=== PATIENT | male | born 1970 | race Two or more races ===

== ENCOUNTER 2020-01-31 17:29 | Outpatient (REF) | payer OTHER, SELFPAY | END 2020-01-31 17:30 | disposition home or self-care (01) | LOC: HO.LAB 17:29 | PROVIDERS: Visit Provider Internal Medicine | DX: Z20.828 Contact with and (suspected) exposure to other viral communicable diseases (principal) | CPT/HCPCS: C9803; U0003 ==

== ENCOUNTER 2020-02-15 13:24 | Outpatient (REF) | payer OTHER, SELFPAY | END 2020-02-15 13:25 | disposition home or self-care (01) | LOC: HO.LAB 13:24 | PROVIDERS: PCP Physician Assistant; Visit Provider Internal Medicine | DX: Z20.828 Contact with and (suspected) exposure to other viral communicable diseases (principal) | CPT/HCPCS: C9803; U0003 ==

== ENCOUNTER 2020-11-06 15:30 | Emergency (ER) | payer OTHER, SELFPAY ==
[2020-11-06 15:49] VITALS: BP 145/78; PULSE 55; RESP 18; TEMP 36.7; O2SAT 99; BMI 35.2
== END 2020-11-06 19:36 | disposition left against medical advice (07) ==
PROVIDERS: Emergency Provider Emergency Medicine; PCP Physician Assistant
DX: T15.92XA Foreign body on external eye, part unspecified, left eye, initial encounter (principal); H57.12 Ocular pain, left eye; X58.XXXA Exposure to other specified factors, initial encounter; Y93.9 Activity, unspecified; Y92.9 Unspecified place or not applicable; Y99.0 Civilian activity done for income or pay
CPT/HCPCS: 99281; 99282

== ENCOUNTER 2020-11-22 17:05 | Outpatient (REF) | payer OTHER, SELFPAY ==
[2020-11-22 17:59] LABS: MANUAL DIFF FLAG NO
[2020-11-22 18:06] LABS: Basophils Percent Auto 0.6 % (0-2); Eosinophils Absolute Auto 0.1 X10*3/uL (0.0-0.4); Eosinophils Percent Auto 1.2 % (0-4); Hematocrit 39.8 % (42-52); Hemoglobin 13.3 g/dl (14.0-18.0); Imm Gran Abs Auto 0.01 X10*3/uL (0.00-0.03); Imm Gran Pct Auto 0.1 % (0.0-0.4); Lymphocytes Absolute Auto 2.1 X10*3/uL (1.2-4.9); Lymphocytes Percent Auto 30.5 % (20-40); Mean Corpuscular HGB Conc 33.4 g/dl (31.0-36.0); Mean Corpuscular Hemoglobin 30.2 pg (27.0-33.0); Mean Corpuscular Volume 90.2 fL (80-98); Mean Platelet Volume 11.9 fL (9.4-12.4); Monocytes Absolute Auto 0.5 X10*3/uL (0.1-1.2); Monocytes Percent Auto 7.4 % (2-11); Neutrophils Absolute Auto 4.2 X10*3/uL (2.0-8.3); Neutrophils Percent Auto 60.2 % (45-73); Platelet Count 192 X10*3/uL (160-400); Red Blood Count 4.41 X10*6/uL (4.60-5.80); Red Cell Distribution Width 11.7 % (11.0-16.0); White Blood Count 6.9 X10*3/uL (4.8-10.8)
[2020-11-22 18:15] LABS: Estimated Average Glucose 88 mg/dL; Hemoglobin A1c % 4.7 %
[2020-11-22 18:41] LABS: Alanine Aminotransferase 114 U/L (0-40); Albumin Level 4.3 g/dL (3.5-5.0); Alkaline Phosphatase 125 U/L (39-117); Anion Gap 11 (12-20); Aspartate Amino Transferase 70 U/L (5-37); Bilirubin Total 0.7 mg/dL (0.0-1.0); Blood Urea Nitrogen 14 mg/dL (9-16); Calcium 9.2 mg/dL (8.4-10.2); Carbon Dioxide 28 mmol/L (22-29); Chloride 104 mmol/L (96-108); Cholesterol 182 mg/dL; Estimated Glomerular Filt Rate > 60; Glucose Random 114 mg/dL (60-115); HDL Cholesterol 55 mg/dL; LDL Cholesterol Calculated 97 mg/dl; Potassium 4.2 mmol/L (3.3-5.1); Sodium 139 mmol/L (135-145); Total Protein 8.3 g/dL (6.5-8.0); Triglycerides 152 mg/dL
[2020-11-22 18:49] LABS: Free T4 (Free Thyroxine) 1.03 ng/dL (0.71-1.85); Thyroid Stimulating Hormone 1.73 uIU/mL (0.32-4.0); Vitamin D 25-OH Total 25.5 ng/mL (>30)
[2020-11-22 19:01] LABS: Folate 17.4 ng/mL (> or = 4.0); Vitamin B12 346 pg/mL (200-900)
== END 2020-11-22 17:06 | disposition home or self-care (01) ==
LOC: HO.LAB 17:05
PROVIDERS: PCP Physician Assistant; Visit Provider Nurse Practitioner Family
DX: R21 Rash and other nonspecific skin eruption (principal); R79.89 Other specified abnormal findings of blood chemistry
CPT/HCPCS: 36415; 80053; 80061; 82306; 82607; 82746; 83036; 84439; 84443; 85025

== ENCOUNTER 2021-01-18 09:45 | Outpatient (REF) | payer OTHER, SELFPAY ==
--- NOTE | ~2021-01-18 | US_ITS ---
EXAMINATION: US ABDOMEN COMPLETE CLINICAL INFORMATION: Abnormal findings of blood chemistry. COMPARISON: None TECHNIQUE: Real-time imaging of the abdominal viscera. FINDINGS: PANCREAS: Pancreas is normal in size and echogenicity. No pancreatic ductal distention or retroperitoneal effusion. ABDOMINAL AORTA: The proximal and distal segments are normal in caliber. Portion of mid abdominal aorta obscured by bowel gas. INFERIOR VENA CAVA: Visualized portions are normal. LIVER: The liver is within upper limits of normal size and is smooth in contour. There is increased hepatic parenchymal echogenicity consistent with hepatic steatosis. There is geographic subcapsular fatty sparing posterior left lobe measuring approximately 3.3 x 2.6 cm. No intrahepatic ductal dilatation. GALLBLADDER: The gallbladder is distended to 3.4 cm in diameter. There is no intraluminal gallstone or sludge and no wall thickening. There are scattered specular echoes in the gallbladder wall with twinkling artifact on color Doppler suggesting cholesterolosis/adenomyomatosis. COMMON BILE DUCT: Normal in caliber measuring 0.5 cm in diameter. RIGHT KIDNEY: Normal. No hydronephrosis. No renal calculi or focal parenchymal lesions. The kidney measures 13.4 cm in maximum dimension. LEFT KIDNEY: Normal. No hydronephrosis. No renal calculi or focal parenchymal lesions. The kidney measures 13.6 cm in maximum dimension. SPLEEN: Normal. The spleen measures 10.9 cm in maximum dimension. FREE FLUID: None. US/US abdomen complete IMPRESSION: 1. Probable cholesterolosis/adenomyomatosis gallbladder. No gallstone or wall thickening or biliary ductal dilatation. 2. Hepatic steatosis with some fatty sparing posterior left lobe.
== END 2021-01-18 09:46 | disposition home or self-care (01) ==
LOC: HO.US 09:45
PROVIDERS: PCP Physician Assistant; Visit Provider Nurse Practitioner Family
DX: R79.89 Other specified abnormal findings of blood chemistry (principal)
CPT/HCPCS: 76700

== ENCOUNTER 2021-02-22 13:14 | Outpatient (REF) | payer OTHER, SELFPAY ==
[2021-02-22 13:55] LABS: MANUAL DIFF FLAG NO
[2021-02-22 14:49] LABS: Basophils Percent Auto 0.3 % (0-2); Eosinophils Absolute Auto 0.1 X10*3/uL (0.0-0.4); Eosinophils Percent Auto 0.9 % (0-4); Hematocrit 40.5 % (42.0-52.0); Hemoglobin 13.3 g/dl (14.0-18.0); Imm Gran Abs Auto 0.01 X10*3/uL (0.00-0.03); Imm Gran Pct Auto 0.2 % (0.0-0.4); Lymphocytes Absolute Auto 2.1 X10*3/uL (1.2-4.9); Lymphocytes Percent Auto 32.4 % (20-40); Mean Corpuscular HGB Conc 32.8 g/dl (31.0-36.0); Mean Corpuscular Hemoglobin 29.6 pg (27.0-33.0); Mean Corpuscular Volume 90.2 fL (80.0-98.0); Mean Platelet Volume 11.9 fL (9.4-12.4); Monocytes Absolute Auto 0.5 X10*3/uL (0.1-1.2); Monocytes Percent Auto 8.5 % (2-11); Neutrophils Absolute Auto 3.7 x10*3/uL (2.0-8.3); Neutrophils Percent Auto 57.7 % (45-73); Platelet Count 178 X10*3/uL (160-400); Red Blood Count 4.49 X10*6/uL (4.60-5.80); Red Cell Distribution Width 11.8 % (11.0-16.0); White Blood Count 6.4 X10*3/uL (4.8-10.8)
[2021-02-22 14:58] LABS: Prothrombin Time 10.8 SEC (9.9-13.0)
[2021-02-22 15:16] LABS: Alanine Aminotransferase 108 U/L (0-40); Albumin Level 4.2 g/dL (3.5-5.0); Alkaline Phosphatase 110 U/L (39-117); Aspartate Amino Transferase 66 U/L (5-37); Bilirubin Direct 0.3 mg/dL (0.0-0.5); Bilirubin Total 0.6 mg/dL (0.0-1.0); Iron 123 mcg/dL (45-160); Percent Iron Saturation 35 % (15-50); Total Iron Binding Capacity 353 mcg/dL (228-428); Total Protein 8.3 g/dL (6.5-8.0); Unsaturated Iron Binding 230 ug/dL
[2021-02-22 15:32] LABS: Vitamin D 25-OH Total 16.5 ng/mL (>30)
[2021-02-22 15:34] LABS: Ferritin 394 ng/mL (20-250)
[2021-02-23 07:50] LABS: HBS Num1 1.63 mIU/mL (0-7.99); HBsAGNum1 0.27 S/CO (0.00-0.99); Hepatitis A Antibody IgM 0.13 Index (0-0.79); Hepatitis B Core Antibody Nonreactive (Nonreactive); Hepatitis B Surface Antigen Negative (Negative); ~HepC Num1 18.34 S/CO (0.00-0.79); ~Hepatitis A Antibody IgM Nonreactive (Nonreactive); ~Hepatitis B Surface Antibody NONREACTIVE (Nonreactive); ~Hepatitis C Antibody Reactive (Nonreactive)
[2021-02-23 08:11] LABS: Hepatitis A Antibody IgM 0.16 Index (0-0.79); ~Hepatitis A Antibody IgM Nonreactive (Nonreactive)
[2021-02-23 08:44] LABS: Hepatitis A Antibody IgG Nonreactive (Nonreactive); ~Hepatitis A Antibody IgG 0.49 S/CO (0.00-0.99)
[2021-02-25 07:17] LABS: Anti Nuclear Antibody Screen NEGATIVE (NEGATIVE)
[2021-02-27 11:46] LABS: Smooth Muscle Antibody <20 U (<20)
[2021-02-27 16:42] LABS: Mitochondrial Antibodies NEGATIVE (NEGATIVE)
== END 2021-02-22 13:15 | disposition home or self-care (01) ==
LOC: HO.LAB 13:14
PROVIDERS: Nurse Practitioner Family; PCP Physician Assistant; Visit Provider Internal Medicine Gastroenterology
DX: K76.0 Fatty (change of) liver, not elsewhere classified (principal); R79.89 Other specified abnormal findings of blood chemistry
CPT/HCPCS: 36415; 80076; 82306; 82728; 83540; 85025; 85610; 86038; 86039; 86255; 86256; 86704; 86706; 86708; 86709; 86803; 87340

== ENCOUNTER 2021-03-02 08:35 | Outpatient (REF) | payer OTHER, SELFPAY ==
[2021-03-02 10:05] LABS: ~HepC Num1 17.56 S/CO (0.00-0.79); ~Hepatitis C Antibody Reactive (Nonreactive)
[2021-03-08 15:16] LABS: HCV RNA PCR Qn 5360000 IU/mL (NOT DETECTED); HCV RNA PCR Qn 6.73 Log IU/mL (NOT DETECTED)
[2021-03-16 14:15] LABS: HCV Genotype LiPA 1a
== END 2021-03-02 08:36 | disposition home or self-care (01) ==
LOC: HO.LAB 08:35
PROVIDERS: Visit Provider Nurse Practitioner Family
DX: Z01.84 Encounter for antibody response examination (principal); R76.8 Other specified abnormal immunological findings in serum
CPT/HCPCS: 36415; 86803; 87522; 87902

== ENCOUNTER 2021-04-17 07:19 | Day surgery (SDC) | payer OTHER, SELFPAY ==
--- NOTE | 2021-04-16 08:43 | HO.ANESPROP2 ---
Documented by User: Kamala Horn NP 04/16/21 08:43 HPI - Anesthesia Eval Consult details Narrative: 51yo M for Colonoscopy Methadone daily for h/o IVDA PMFSH Active Problems Active Problems: All Active Problems (Updated 03/15/21 @ 13:39 by Valentina Garcia RN) Skin rash (Acute) BMI 33.0-33.9,adult (Acute) Low vitamin D level (Acute) Elevated LFTs (Acute) Adenomyomatosis of gallbladder (Acute) Hepatitis C antibody positive in blood (Acute) Hepatitis C infection (Acute) Past Medical History Medical History (Updated 03/15/21 @ 13:39 by Valentina Garcia RN) Hx of drug dependence Family History Family History (Updated 11/22/20 @ 16:49 by LISA Stern) Son Mental health disorder Mother Heart attack Father No problems noted. Other Substance use disorder Surgical History Surgical History (Updated 11/22/20 @ 16:01 by MONICA Garner) No history of previous surgery Social History Social History (Updated 11/22/20 @ 16:02 by MONICA Garner) Housing: Apartment Alcohol intake: never Patient Tobacco Use Status: Current everyday Tobacco user Tobacco use type: Cigarette Cigarettes Per Day: 5 Smoked in Last 30 Days: Yes Use of substances other than those prescribed or required for medical reasons: Yes Are you DNR?: No Advance Directives: No Advance Directives Information Provided: Yes service: No Current occupational status: employed Meds Allergies Allergy/AdvReac Type Severity Reaction Status Date / Time No Known Allergies Allergy Verified 04/17/21 07:36 [No Known Allergies*] Home Medications Medication Instructions Recorded Confirmed Last Taken Type methadone 10 mg/mL oral concentrate mg 03/15/21 Unknown History Exam Exam Date and Time: April 16, 2021 0843 Pertinent Lab Results Pertinent Lab Results: Laboratory Tests 11/22/20 02/22/21 17:28 13:51 WBC 6.4 Hgb 13.3 L Hct 40.5 L Plt Count 178 Sodium 139 Potassium 4.2 Chloride 104 Carbon Dioxide 28 BUN 14 Creatinine 0.83 Assessment and Plan Assessment Anesthesia Assessment: Chart Reviewed Documented by User: Rey Valerio 04/17/21 08:19 COUNT INCLUDES THE [facility] Past Medical History Medical History (Updated 03/15/21 @ 13:39 by Valentina Garcia RN) Hx of drug dependence Family History Family History (Updated 11/22/20 @ 16:49 by LISA Stern) Son Mental health disorder Mother Heart attack Father No problems noted. Other Substance use disorder Family history of problems with anesthesia: No Surgical History Surgical History (Updated 11/22/20 @ 16:01 by MONICA Garner) No history of previous surgery History of Problems with Anesthesia: No Social History Social History (Updated 11/22/20 @ 16:02 by MONICA Garner) Housing: Apartment Alcohol intake: never Patient Tobacco Use Status: Current everyday Tobacco user Tobacco use type: Cigarette Cigarettes Per Day: 5 Smoked in Last 30 Days: Yes Use of substances other than those prescribed or required for medical reasons: Yes Are you DNR?: No Advance Directives: No Advance Directives Information Provided: Yes service: No Current occupational status: employed Meds Allergies Allergy/AdvReac Type Severity Reaction Status Date / Time No Known Allergies Allergy Verified 04/17/21 07:36 [No Known Allergies*] Home Medications Medication Instructions Recorded Confirmed Last Taken Type methadone 10 mg/mL oral concentrate mg 03/15/21 Unknown History Exam Airway Mallampati Class: II TM Dist: >3cm Neck ROM: Full Loose/Missing/Broken Teeth: Yes Heart: rrr Lungs: bl breath sounds Assessment and Plan Assessment Anesthesia Assessment: Anesthesia Plan Discussed Final Anesthetic Review Family History of Problems with Anesthesia: No History of Problems with Anesthesia: No NPO: Yes ASA Class: III Final Preanesthetic Review: Meds/Allgs Chart Reviewed and Anes Risks/Benef Reviewed Patient Risk: Intermediate Procedure Risk: Intermediate Anesthetic Plan Anesthetic Plan: MAC: Disposition: Standard PACU
[2021-04-17 08:01] VITALS: BMI 34.9
[2021-04-17 08:03] VITALS: BP 163/91; PULSE 56; RESP 16; TEMP 36.3; O2SAT 97
[2021-04-17] MEDS: Lactated Ringers 1,000 ML 100 ML IVCONT (08:13)
--- NOTE | 2021-04-17 08:15 | MHC.SHP ---
Pre-Procedural Eval Section A Date of Service: 04/17/21 Section B Chief Complaint: screening Details of Present Illness: screening see h&p no changes Relevant Family History (Specify if Yes): No Relevant Social History: None Present Medications: None Medical History: No relevant PMH History of Previous Operations: No relevant previous surgery Allergies: Allergies Allergy/AdvReac Type Severity Reaction Status Date / Time No Known Allergies Allergy Verified 04/17/21 07:36 [No Known Allergies*] Review of Systems Sugical H&P ROS: Negative: Constitution, Cardiovascular, Respiratory, Neurological, Psychiatric, Hem-Onc, Allergic/Immunologic, Gastrointestinal, Genitourinary, Musculoskeletal, Integumentary, Endocrine and Eyes/Ears/Nose/Throat Exam Surgical H&P Exam: Normal: HEENT, Normal: Heart, Normal: Lungs, Normal: Extremities, Normal: Abdomen, Normal: Skin and Normal: Neurological Plan Diagnosis/Plan: Unchanged I have reviewed the history and physical and performed a pertinent physical examination on my patient. No changes have occurred unless specified.
--- NOTE | 2021-04-17 08:50 | P.BOP_ITS ---
Brief Operative Note Date of Service: 04/17/21 Pre-op diagnosis: screening Post-op diagnosis: same Procedure: colonoscopy Surgeon: Elliott Abel Anesthesia: MAC Was an Private Equity Analyst used for this Procedure?: No Estimated blood loss (mL): 0 Pathology: none sent Condition: stable Disposition: PACU
[2021-04-17 08:56] VITALS: BP 102/61; PULSE 53; RESP 15; TEMP 36.6; O2SAT 98
[2021-04-17 09:11] VITALS: BP 132/82; PULSE 54; RESP 16; TEMP 36.6; O2SAT 98
--- NOTE | 2021-04-17 09:32 | OP_ITS ---
SURGEON: Elliott Abel MD INDICATIONS: Colon cancer screening. PREOPERATIVE DIAGNOSIS: POSTOPERATIVE DIAGNOSIS: PROCEDURE PERFORMED: Colonoscopy to the terminal ileum. ESTIMATED BLOOD LOSS: COMPLICATIONS: ANESTHESIA: Medications, monitored anesthesia care. ASSISTANTS: SPECIMENS: DESCRIPTION OF PROCEDURE: History and physical was performed. The risks and benefits of the procedure were explained to the patient. Informed consent was obtained. The patient was placed in the left lateral decubitus position. A digital rectal exam was performed and was found to be normal. The Olympus pediatric video colonoscope was introduced into the rectum and advanced to the cecum without difficulty. The cecum was identified by transillumination, palpation, and identification of ileocecal valve. Examination was performed. The scope was removed. He tolerated the procedure well and was transferred to the recovery room in stable condition. FINDINGS: The terminal ileum was examined and appeared normal. The visualized colonic mucosa was normal. The quality of the prep was good with some liquid stool, which was easily washed and suctioned allowing examination of the remaining mucosa. No polyps were identified. Retroflexed examination did show some small internal hemorrhoids. IMPRESSION: Normal screening colonoscopy. RECOMMENDATION: 1. Follow up as needed. 2. Repeat colonoscopy is recommended in 10 years for average risk individuals. MD MCKENZIE Reyes/HUY / [id number]
--- NOTE | 2021-04-17 09:49 | PC.NURSE ---
SECURITY WAS NOTIFIED AND PATIENT'S KNIFE WAS RETURNED TO PATIENT WITHOUT INCIDENT. PATIENT ESCORTED OUT TO HIS RIDE IN FRONT OF THE HOSPITAL WITHOUT INCIDENT.
== END 2021-04-17 09:52 | disposition home or self-care (01) ==
PROVIDERS: PCP Physician Assistant; Visit Provider Internal Medicine Gastroenterology
PROC: 0DJD8ZZ Inspection of Lower Intestinal Tract, Via Natural or Artificial Opening Endoscopic (ICD-10-PCS; CPT 45378; principal; 2021-04-17 08:20)
DX: Z12.11 Encounter for screening for malignant neoplasm of colon (principal); K64.8 Other hemorrhoids; R79.89 Other specified abnormal findings of blood chemistry; F11.20 Opioid dependence, uncomplicated; F17.210 Nicotine dependence, cigarettes, uncomplicated
CPT/HCPCS: 45378

== ENCOUNTER 2021-05-18 06:40 | Outpatient (REF) | payer OTHER, SELFPAY ==
[2021-05-18 08:16] LABS: Vitamin D 25-OH Total 42.3 ng/mL (>30)
[2021-05-25 09:32] LABS: HCV Genotype PCR 1a
[2021-05-26 16:01] LABS: FIB-ALT 56 U/L (9-46); FIB-Alpha-2-Macroglobulin 379 mg/dL (106-279); FIB-Apolipoprotein A1 165 mg/dL (94-176); FIB-GGT 255 U/L (3-95); FIB-Haptoglobin 279 mg/dL (43-212); FIB-Total Bilirubin 0.4 mg/dL (0.2-1.2); Liver Fibrosis Score 0.53; Liver Fibrosis Stage F2; Nec Inflam Act Grade A1-A2; Nec Inflam Act Score 0.41
== END 2021-05-18 06:41 | disposition home or self-care (01) ==
LOC: HO.LAB 06:40
PROVIDERS: Absent Provider Nurse Practitioner Family; PCP Physician Assistant; Visit Provider Nurse Practitioner Acute Care
DX: B19.20 Unspecified viral hepatitis C without hepatic coma (principal); R79.89 Other specified abnormal findings of blood chemistry
CPT/HCPCS: 36415; 81596; 82306; 87902

== ENCOUNTER → 2021-06-06 14:59 | Outpatient (BNVA) | payer OTHER, SELFPAY | PROVIDERS: Visit Provider Internal Medicine | DX: B19.20 Unspecified viral hepatitis C without hepatic coma (principal) | CPT/HCPCS: 99202 ==

== ENCOUNTER 2021-06-11 06:33 | Outpatient (REF) | payer OTHER, SELFPAY ==
[2021-06-11 08:59] LABS: HIV AB/AG Nonreactive (Nonreactive); HIV Num 1 0.07 S/CO (0.00-0.99)
[2021-06-12 14:52] LABS: HCV RNA PCR Qn 3260000 IU/mL (NOT DETECTED); HCV RNA PCR Qn 6.51 Log IU/mL (NOT DETECTED)
[2021-06-25 19:01] LABS: HCV Genotype LiPA 1a
== END 2021-06-11 06:34 | disposition home or self-care (01) ==
LOC: HO.LAB 06:33
PROVIDERS: Nurse Practitioner Family; PCP Nurse Practitioner Acute Care; Visit Provider Internal Medicine
DX: B19.20 Unspecified viral hepatitis C without hepatic coma (principal)
CPT/HCPCS: 36415; 87389; 87522; 87902

== ENCOUNTER → 2021-07-18 15:40 | Outpatient (BNVA) | payer OTHER, SELFPAY | PROVIDERS: PCP Nurse Practitioner Acute Care; Visit Provider Internal Medicine | DX: B19.20 Unspecified viral hepatitis C without hepatic coma (principal) | CPT/HCPCS: 99212 ==

== ENCOUNTER 2021-10-30 16:37 | Outpatient (REF) | payer OTHER, SELFPAY ==
[2021-11-02 15:11] LABS: HCV RNA PCR Qn <1.18 NOT DETECTED Log IU/mL (NOT DETECTED); HCV RNA PCR Qn <15 NOT DETECTED IU/mL (NOT DETECTED)
== END 2021-10-30 16:38 | disposition home or self-care (01) ==
LOC: HO.LAB 16:37
PROVIDERS: Visit Provider Internal Medicine
DX: R76.8 Other specified abnormal immunological findings in serum (principal); B19.20 Unspecified viral hepatitis C without hepatic coma
CPT/HCPCS: 36415; 87522; 87902

== ENCOUNTER → 2021-11-14 13:37 | Outpatient (BNVA) | payer OTHER, SELFPAY | PROVIDERS: Visit Provider Internal Medicine | DX: B19.20 Unspecified viral hepatitis C without hepatic coma (principal) | CPT/HCPCS: 99212 ==

== ENCOUNTER → 2022-02-11 14:09 | Outpatient (BNVA) | payer OTHER, SELFPAY | PROVIDERS: Visit Provider Physician Assistant Medical | DX: M25.531 Pain in right wrist (principal) | CPT/HCPCS: 73110; 99202 ==

== ENCOUNTER 2022-02-12 11:18 | Outpatient (REF) | payer OTHER, SELFPAY ==
[2022-02-14 14:59] LABS: HCV Log PCR <1.18 NOT DETECTED Log IU/mL (NOT DETECTED); HepC Viral Load <15 NOT DETECTED IU/mL (NOT DETECTED)
== END 2022-02-12 11:19 | disposition home or self-care (01) ==
LOC: HO.LAB 11:18
PROVIDERS: Visit Provider Internal Medicine
DX: B19.20 Unspecified viral hepatitis C without hepatic coma (principal)
CPT/HCPCS: 36415; 87522

== ENCOUNTER → 2022-02-21 15:16 | Outpatient (BNVA) | payer OTHER, SELFPAY | PROVIDERS: Visit Provider Internal Medicine | DX: S63.501A Unspecified sprain of right wrist, initial encounter (principal); X58.XXXA Exposure to other specified factors, initial encounter | CPT/HCPCS: 99213 ==

== ENCOUNTER → 2022-03-08 15:19 | Outpatient (BNVA) | payer OTHER, SELFPAY | PROVIDERS: Visit Provider Internal Medicine | DX: M25.531 Pain in right wrist (principal); M25.532 Pain in left wrist; M25.431 Effusion, right wrist | CPT/HCPCS: 99213 ==

== ENCOUNTER 2022-04-22 08:48 | Outpatient (REF) | payer SELFPAY ==
--- NOTE | ~2022-04-22 | XR_ITS ---
EXAMINATION: XR WRIST, RIGHT CLINICAL INFORMATION: Right wrist pain COMPARISON: 02/11/2022 TECHNIQUE: PA, lateral, and oblique views of the right wrist. FINDINGS: Dorsal soft tissue swelling. No acute fracture or malalignment. There are small round calcifications in the soft tissues volar to the 3rd and 4th MCP joints of uncertain etiology. These were present previously, possibly due to a remote injury. Such soft tissue calcifications can be seen with soft tissue hemangiomas. Clinically correlate and consider further evaluation with MRI if indicated. XR/XR wrist RT min 3V IMPRESSION: 1. Dorsal soft tissue swelling. No acute osseous abnormality. 2. Small round calcifications in the soft tissues volar to the 3rd and 4th MCP joints of uncertain etiology. Consider further evaluation with MRI if clinically indicated.
== END 2022-04-22 08:49 | disposition home or self-care (01) ==
LOC: HO.HOSX 08:48
PROVIDERS: Visit Provider Orthopaedic Surgery
DX: M25.531 Pain in right wrist (principal)
CPT/HCPCS: 73110

== ENCOUNTER → 2022-04-23 13:55 | Outpatient (BNVA) | payer OTHER, SELFPAY | PROVIDERS: Visit Provider Orthopaedic Surgery | DX: R20.0 Anesthesia of skin (principal); R20.2 Paresthesia of skin | CPT/HCPCS: 99202; 99212 ==

== ENCOUNTER 2022-05-02 | Outpatient (REF) | payer OTHER, SELFPAY ==
--- NOTE | ~2022-05-02 | XR_ITS ---
EXAMINATION: BILATERAL KNEE X-RAY CLINICAL INFORMATION: Pain COMPARISON: Previous x-rays most recent 2017 and 2019 TECHNIQUE: 3 views of each knee FINDINGS: Right: There is varus angulation. Bone alignment is otherwise normal. There is severe arthritis at the medial femoral tibial joint. There is mild arthritis at the patellofemoral joint. There is a large joint effusion. Left: Bone alignment is normal. No fracture or dislocation. There is arthritis at the lateral femoral tibial and patellofemoral joints. There is a moderate joint effusion. XR/XR knee standing BI IMPRESSION: Bilateral arthritis and joint effusions.
--- NOTE | ~2022-05-02 | XR_ITS ---
EXAMINATION: BILATERAL KNEE X-RAY CLINICAL INFORMATION: Pain COMPARISON: Previous x-rays most recent 2017 and 2019 TECHNIQUE: 3 views of each knee FINDINGS: Right: There is varus angulation. Bone alignment is otherwise normal. There is severe arthritis at the medial femoral tibial joint. There is mild arthritis at the patellofemoral joint. There is a large joint effusion. Left: Bone alignment is normal. No fracture or dislocation. There is arthritis at the lateral femoral tibial and patellofemoral joints. There is a moderate joint effusion. XR/XR knee RT 2V IMPRESSION: Bilateral arthritis and joint effusions.
--- NOTE | ~2022-05-02 | XR_ITS ---
EXAMINATION: BILATERAL KNEE X-RAY CLINICAL INFORMATION: Pain COMPARISON: Previous x-rays most recent 2017 and 2019 TECHNIQUE: 3 views of each knee FINDINGS: Right: There is varus angulation. Bone alignment is otherwise normal. There is severe arthritis at the medial femoral tibial joint. There is mild arthritis at the patellofemoral joint. There is a large joint effusion. Left: Bone alignment is normal. No fracture or dislocation. There is arthritis at the lateral femoral tibial and patellofemoral joints. There is a moderate joint effusion. XR/XR knee LT 2V IMPRESSION: Bilateral arthritis and joint effusions.
== END 2022-05-02 00:01 | disposition home or self-care (01) ==
LOC: HO.HOSX
PROVIDERS: Visit Provider Physician Assistant
DX: M17.0 Bilateral primary osteoarthritis of knee (principal)
CPT/HCPCS: 20610; 73560; 73565; J1040

== ENCOUNTER 2022-06-05 11:54 | Outpatient (REF) | payer OTHER, SELFPAY ==
--- NOTE | 2022-06-05 10:15 | EMG_ITS ---
Please see scanned EMG / Nerve Conduction Report. MTDD
== END 2022-06-05 11:55 | disposition home or self-care (01) ==
LOC: HO.NEURO 11:54
PROVIDERS: Visit Provider Orthopaedic Surgery
DX: R20.0 Anesthesia of skin (principal); R20.2 Paresthesia of skin
CPT/HCPCS: 95885; 95913

== ENCOUNTER → 2022-06-26 09:20 | Outpatient (BNVA) | payer OTHER, SELFPAY | PROVIDERS: Visit Provider Physician Assistant Medical | DX: S33.9XXA Sprain of unspecified parts of lumbar spine and pelvis, initial encounter (principal); X50.0XXA Overexertion from strenuous movement or load, initial encounter | CPT/HCPCS: 99203 ==

== ENCOUNTER → 2022-07-01 10:02 | Outpatient (BNVA) | payer OTHER, SELFPAY | PROVIDERS: Visit Provider Physician Assistant Medical | DX: S33.9XXA Sprain of unspecified parts of lumbar spine and pelvis, initial encounter (principal); X50.0XXA Overexertion from strenuous movement or load, initial encounter | CPT/HCPCS: 99213 ==

== ENCOUNTER → 2022-07-15 09:26 | Outpatient (BNVA) | payer OTHER, SELFPAY | PROVIDERS: Visit Provider Physician Assistant Medical | DX: S33.9XXD Sprain of unspecified parts of lumbar spine and pelvis, subsequent encounter (principal); X50.0XXD Overexertion from strenuous movement or load, subsequent encounter; M54.17 Radiculopathy, lumbosacral region; M46.1 Sacroiliitis, not elsewhere classified | CPT/HCPCS: 99213 ==

== ENCOUNTER → 2022-07-30 14:52 | Outpatient (BNVA) | payer OTHER, SELFPAY | PROVIDERS: Visit Provider Physician Assistant Medical | DX: S33.9XXD Sprain of unspecified parts of lumbar spine and pelvis, subsequent encounter (principal); X50.0XXD Overexertion from strenuous movement or load, subsequent encounter; M54.17 Radiculopathy, lumbosacral region | CPT/HCPCS: 99213 ==

== ENCOUNTER → 2022-08-01 13:32 | Outpatient (BNVA) | payer OTHER, SELFPAY | PROVIDERS: Visit Provider Physician Assistant | DX: M17.11 Unilateral primary osteoarthritis, right knee (principal); M17.12 Unilateral primary osteoarthritis, left knee | CPT/HCPCS: 20610; 99212; J1040 ==

== ENCOUNTER 2022-08-15 10:00 | Outpatient (RCR) | payer OTHER, SELFPAY ==
[2022-07-04 08:27] VITALS: BP 135/63; PULSE 67
--- NOTE | 2022-07-04 10:49 | MHC.PT.EP ---
[facility] [place] [facility] [address] Mary Brennan [address] [phone] F: [phone] F: [phone] F: [phone] F: [phone] Physical Therapy Plan of Care Date of Evaluation: Date of Surgery: Diagnosis: lumbosacral strain and spasms Assessment: 52 y/o male referred to PT with lumbosacral strain and spasm on 06/25/22 from work connection. 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 He is not sure what he lifted, but he reports having onset of L LBP while at work and reported to his senior software engineering manager. This pain worsened throughout the day and he has been OOW since 06/25/22. His pain is located L lumbar region radiated into medial L grion/adductor region resulting in pain and difficulty with all movement, sitting, standing, walking, stairs, sleeping, and work duties. Denies bowel, bladder changes and saddle anesthesia. He was emotionally labile throughout evaluation d/t pain and also reporting 'upset and embarrassed' and he has never injured himself before.' D/t high pain levels and emotionally lability, evaluation was somewhat limited. He demonstrate R lateral shift (hips to the L), significantly limited lumbar AROM, poor sitting and standing posture (leans to the R), decreased L hip/knee strength, increased pain, and ?altered DTR (pt unable to fully relax so not accurate assessment). S/s consistent with lumbar derangement and recommend PT 3x/week for 2 weeks then 2x/week for another 2 weeks to address impairments, implement HEP, and optimize functional mobility. Frequency and Duration: The patient will be seen 3x/week for 4 weeks Short Term Goals: 2 weeks Initiate HEP Pt will be able to sit in neutral erect posture with pain < 4/10 Pt will be able to perform bed mobility without assistance and pain < 4/10 Will iniitate work simulation in 3 weeks Halfway Goals: 4 weeks I with HEP and self management of sx Pt will demonstrate LE strength to 4/5 to facilitate functional mobility Pt will be able to ambulate > 20 minutes with pain < 3/10 Pt will be able to lift 15# box with proper mechanics and pain < 3/10 Treatment Plan: Modalities to reduce pain, spasms and effusion. Manual therapy to restore motion and function. Therapeutic exercise to improve strength and flexibility. Neuromuscular re-education for posture and balance. Therapeutic activities to return to functional activities of daily living. Electronically signed by: Vandana Rogel PT Please sign and return to therapist. Thank you for your referral.
--- NOTE | 2022-09-18 08:13 | MHC.PT.DC ---
[facility] [place] Office [place] Office [place] Office [address] Mary Brennan [address] [phone] F: [phone] F: [phone] F: [phone] F: [phone] Physical Therapy Discharge Report Diagnosis: lumbosacral strain and spasms Date of Surgery: Date of Evaluation: 07/04/22 Date of Discharge: 09/18/22 Treatments to Date: 13 Cancellations to Date: 0 No Shows to Date: 0 Discharge Status: Discharge Summary: Pt has not been here in over 30 days and per department policy, will d/c chart. Status is unknown. At time of last visit, he was awaiting lumbar MRI imaging. Electronically signed by: Vandana Rogel PT Please sign and return to therapist. Thank you for your referral.
== END 2022-09-18 08:13 | disposition home or self-care (01) ==
LOC: HO.PT 10:00
PROVIDERS: Visit Provider Physician Assistant Medical
DX: S39.012D Strain of muscle, fascia and tendon of lower back, subsequent encounter (principal); M62.830 Muscle spasm of back
CPT/HCPCS: 97014; 97110; 97162; 97530

== ENCOUNTER 2022-08-22 15:55 | Outpatient (REF) | payer OTHER, SELFPAY ==
--- NOTE | ~2022-08-22 | MR_ITS ---
EXAMINATION: MR LUMBAR SPINE WITHOUT AND WITH CONTRAST CLINICAL INFORMATION: Lifting injury. Persistent severe left radicular pain. COMPARISON: None TECHNIQUE: MRI of the lumbar spine was obtained using routine sequences without and with intravenous contrast. A total of 10 mL Gadavist was intravenously administered. FINDINGS: The lumbar vertebral bodies maintain normal heights and alignment. There is no disc height loss. No destructive endplate changes are seen. There is bone marrow and soft tissue edema about the left L1 transverse process most likely representing nondisplaced fracture. There is edema within the spinous processes of L2, L3, and L4 suspicious for additional fractures. There is edema within the left aspect of the L4 vertebral body also involving the left-sided posterior elements at L4 and to lesser extent at L3 with significant soft tissue/muscular edema presumably representing sequela of recent injury with muscular strain. Additional edema is also noted in the right-sided L3 and L4 pedicles as well as about the right-sided L4-L5 facets. There is no evidence of facet joint effusion. The distal spinal cord appears normal. The conus medullaris terminates normally at the L1 level. There is no abnormal enhancement of the cauda equina nerve roots. There is enhancement paralleling the marrow and soft tissue edema. No drainable collection is seen. The psoas musculature appears normal and symmetric. The imaged intra-abdominal and intrapelvic contents are within normal limits. SPINAL LEVELS: L1-L2: Mild disc bulging. No spinal canal or neural foraminal stenosis. L2-L3: Mild disc bulging. No spinal canal stenosis. Mild narrowing of the neural foramina. L3-L4: Disc bulging with central protrusion and ligamentum flavum infolding. Significant inflammation seen about the left-sided facet joint. Moderate left and mild right neural foraminal stenosis. Mild spinal canal stenosis. L4-L5: Disc bulging with central protrusion and moderate facet arthropathy. Mild spinal canal stenosis. Bulging disc extends into the neural foramina resulting in moderate to severe bilateral neural foraminal stenosis with compression of both exiting L4 nerve roots. L5-S1: Disc bulging with moderate facet arthropathy. No spinal canal or neural foraminal stenosis. MR/MR lumbar spine wo/w con IMPRESSION: 1. Bone marrow and soft tissue edema is seen about the left-sided L1 transverse process, L2, L3, L4, and L5 posterior elements compatible with sequela of recent injury. There is also edema within the right-sided L3 and L4 pedicles as well as the right-sided L4-L5 facets. No drainable fluid collection is seen. No destructive endplate changes are seen. These findings are suspected to be posttraumatic and dedicated evaluation with lumbar spine CT is recommended. Infectious/inflammatory process is considered less likely but not excluded. 2. At L3-L4 there moderate left and mild right neural foraminal stenosis. 3. At L4-L5 there is moderate to severe bilateral neural foraminal stenosis with compression of both exiting L4 nerve roots. These findings will be confirmed with the ordering clinician.
== END 2022-08-22 15:56 | disposition home or self-care (01) ==
LOC: HO.MRI 15:55
PROVIDERS: Visit Provider Internal Medicine
DX: M54.16 Radiculopathy, lumbar region (principal)
CPT/HCPCS: 72158; A9585

== ENCOUNTER → 2022-08-29 08:48 | Outpatient (BNVA) | payer OTHER, SELFPAY | PROVIDERS: Visit Provider Internal Medicine | DX: M54.16 Radiculopathy, lumbar region (principal) | CPT/HCPCS: 72131; 99205 ==

== ENCOUNTER 2022-09-25 06:09 | Outpatient (REF) | payer OTHER, SELFPAY ==
[2022-09-25 06:52] LABS: MANUAL DIFF FLAG NO
[2022-09-25 07:25] LABS: Basophils Absolute Auto 0.1 X10*3/uL (0.0-0.2); Basophils Percent Auto 0.8 % (0-2); Eosinophils Absolute Auto 0.1 X10*3/uL (0.0-0.4); Eosinophils Percent Auto 1.6 % (0-4); Hematocrit 38.5 % (42.0-52.0); Hemoglobin 12.5 g/dl (14.0-18.0); Imm Gran Abs Auto 0.01 X10*3/uL (0.00-0.03); Imm Gran Pct Auto 0.2 % (0.0-0.4); Lymphocytes Absolute Auto 2.2 X10*3/uL (1.2-4.9); Lymphocytes Percent Auto 36.5 % (20-40); Mean Corpuscular HGB Conc 32.5 g/dl (31.0-36.0); Mean Corpuscular Hemoglobin 28.7 pg (27.0-33.0); Mean Corpuscular Volume 88.3 fL (80.0-98.0); Monocytes Absolute Auto 0.5 X10*3/uL (0.1-1.2); Monocytes Percent Auto 8.2 % (2-11); Neutrophils Absolute Auto 3.2 x10*3/uL (2.0-8.3); Neutrophils Percent Auto 52.7 % (45-73); Platelet Count 172 X10*3/uL (160-400); Red Blood Count 4.36 X10*6/uL (4.60-5.80); Red Cell Distribution Width 12.6 % (11.0-16.0); White Blood Count 6.1 X10*3/uL (4.8-10.8)
[2022-09-25 07:30] LABS: Estimated Average Glucose 88 mg/dL; Hemoglobin A1c % 4.7 %
[2022-09-25 08:09] LABS: Creatinine Urine 196.93 mg/dL
[2022-09-25 08:13] LABS: Alanine Aminotransferase 25 U/L (0-40); Albumin Level 4.1 g/dL (3.5-5.0); Alkaline Phosphatase 87 U/L (39-117); Anion Gap 13 (12-20); Aspartate Amino Transferase 22 U/L (5-37); Bilirubin Total 0.5 mg/dL (0.0-1.0); Blood Urea Nitrogen 13 mg/dL (9-16); Calcium 9.7 mg/dL (8.4-10.2); Carbon Dioxide 25 mmol/L (22-29); Chloride 106 mmol/L (96-108); Cholesterol 190 mg/dL; Estimated Glomerular Filt Rate > 60; Glucose Random 98 mg/dL (60-115); HDL Cholesterol 47 mg/dL; LDL Cholesterol Calculated 128 mg/dl; Potassium 3.8 mmol/L (3.3-5.1); Sodium 140 mmol/L (135-145); Total Protein 8.1 g/dL (6.5-8.0); Triglycerides 78 mg/dL
[2022-09-25 08:23] LABS: ~HepC Num1 13.55 S/CO (0.00-0.79); ~Hepatitis C Antibody Reactive (Nonreactive)
[2022-09-25 08:26] LABS: Syphilis Screen Nonreactive (Nonreactive)
[2022-09-25 08:27] LABS: HBc Num1 0.08 S/CO (0.00-0.79); HBsAGNum1 0.32 S/CO (0.00-0.99); HIV AB/AG Nonreactive (Nonreactive); HIV Num 1 0.05 S/CO (0.00-0.99); Hepatitis B Core Antibody Nonreactive (Nonreactive); Hepatitis B Surface Antigen Negative (Negative); ~Hepatitis B Surface Antibody NONREACTIVE (Nonreactive)
[2022-09-25 08:30] LABS: TSH reflex Free T4 1.42 uIU/mL (0.32-4.0)
[2022-09-25 09:51] LABS: CT PCR NOT DETECTED (Not Detect.); NG PCR NOT DETECTED (Not Detect.)
[2022-09-28 02:03] LABS: TS Negative Control Passed; TS Panel A 0; TS Panel B 1; TS Positive Control Passed; TSpotTB Negative (Negative)
[2022-09-28 13:43] LABS: HCV Log PCR <1.18 NOT DETECTED Log IU/mL (NOT DETECTED); HepC Viral Load <15 NOT DETECTED IU/mL (NOT DETECTED)
[2022-10-01 12:02] LABS: VITAMIN D (1,25 OH) D3 30 pg/mL; Vit D (1,25-Dihydroxy) Total 30 pg/mL (18-72); Vitamin D (1,25 OH) D2 <8 pg/mL
== END 2022-09-25 06:10 | disposition home or self-care (01) ==
LOC: HO.LAB 06:09
PROVIDERS: PCP Student in an Organized Health Care Education/Training Program; Visit Provider Student in an Organized Health Care Education/Training Program
DX: Z00.00 Encounter for general adult medical examination without abnormal findings (principal)
CPT/HCPCS: 0353U; 80053; 80061; 82043; 82652; 83036; 84443; 85025; 86481; 86704; 86706; 86780; 86803; 87340; 87389; 87522

== ENCOUNTER 2022-10-11 15:06 | Outpatient (REF) | payer OTHER, SELFPAY ==
[2022-10-11 16:05] LABS: MANUAL DIFF FLAG NO
[2022-10-11 16:28] LABS: Basophils Percent Auto 0.5 % (0-2); Eosinophils Absolute Auto 0.1 X10*3/uL (0.0-0.4); Eosinophils Percent Auto 1.6 % (0-4); Hematocrit 38.4 % (42.0-52.0); Hemoglobin 12.6 g/dl (14.0-18.0); Imm Gran Abs Auto 0.01 X10*3/uL (0.00-0.03); Imm Gran Pct Auto 0.2 % (0.0-0.4); Lymphocytes Percent Auto 34.2 % (20-40); Mean Corpuscular HGB Conc 32.8 g/dl (31.0-36.0); Mean Corpuscular Hemoglobin 29.4 pg (27.0-33.0); Mean Corpuscular Volume 89.5 fL (80.0-98.0); Mean Platelet Volume 12.3 fL (9.4-12.4); Monocytes Absolute Auto 0.5 X10*3/uL (0.1-1.2); Monocytes Percent Auto 8.4 % (2-11); Neutrophils Absolute Auto 3.2 x10*3/uL (2.0-8.3); Neutrophils Percent Auto 55.1 % (45-73); Platelet Count 167 X10*3/uL (160-400); Red Blood Count 4.29 X10*6/uL (4.60-5.80); Red Cell Distribution Width 12.4 % (11.0-16.0); White Blood Count 5.7 X10*3/uL (4.8-10.8)
[2022-10-11 18:06] LABS: Iron 67 mcg/dL (45-160); Percent Iron Saturation 24 % (15-50); Total Iron Binding Capacity 280 mcg/dL (228-428); Unsaturated Iron Binding 213 ug/dL
[2022-10-11 18:17] LABS: Ferritin 192 ng/mL (20-250)
== END 2022-10-11 15:07 | disposition home or self-care (01) ==
LOC: HO.HHCL 15:06
PROVIDERS: Visit Provider Student in an Organized Health Care Education/Training Program
DX: D64.9 Anemia, unspecified (principal)
CPT/HCPCS: 36415; 82728; 83540; 85025

== ENCOUNTER 2022-10-28 17:06 | Outpatient (REF) | payer OTHER, SELFPAY ==
[2022-10-29 07:37] LABS: OBS1 NEGATIVE (NEGATIVE); OBS2 NEGATIVE (NEGATIVE); OBS3 NEGATIVE (NEGATIVE)
[2022-10-29 07:38] LABS: OBS Int Ctl Valid YES
== END 2022-10-28 17:07 | disposition home or self-care (01) ==
LOC: HO.HHCLNP 17:06
PROVIDERS: Visit Provider Student in an Organized Health Care Education/Training Program
DX: D64.9 Anemia, unspecified (principal)
CPT/HCPCS: 82270

== ENCOUNTER 2022-11-01 09:53 | Outpatient (REF) | payer OTHER, SELFPAY ==
--- NOTE | ~2022-11-01 | US_ITS ---
EXAMINATION: US ABDOMEN COMPLETE CLINICAL INFORMATION: History of hepatitis. Gallbladder anomaly. COMPARISON: Ultrasound abdomen complete 01/18/2021. TECHNIQUE: Real-time imaging of the abdominal viscera. FINDINGS: PANCREAS: Normal. ABDOMINAL AORTA: The proximal, mid, and distal segments are normal in caliber. INFERIOR VENA CAVA: Visualized portions are normal. LIVER: The liver is normal in size. The liver contour is normal. No focal hepatic lesion. There is no intrahepatic biliary duct dilatation seen. GALLBLADDER: Normal. The gallbladder is physiologically distended without evidence of stones, sludge, polyps, wall thickening or pericholecystic fluid. COMMON BILE DUCT: Normal in caliber measuring 0.4 cm in diameter. RIGHT KIDNEY: Normal. No hydronephrosis. No renal calculi or focal parenchymal lesions. The kidney measures 13.5 cm in maximum dimension. LEFT KIDNEY: Normal. No hydronephrosis. No renal calculi or focal parenchymal lesions. The kidney measures 14.6 cm in maximum dimension. SPLEEN: Normal. The spleen measures 10.5 cm in maximum dimension. FREE FLUID: None. US/US abdomen complete IMPRESSION: 1. Fatty infiltration of the liver. 2. No gallstones or biliary dilatation.
== END 2022-11-01 09:54 | disposition home or self-care (01) ==
LOC: HO.US 09:53
PROVIDERS: PCP Student in an Organized Health Care Education/Training Program; Visit Provider Student in an Organized Health Care Education/Training Program
DX: Q44.1 Other congenital malformations of gallbladder (principal); Z86.16 Personal history of COVID-19
CPT/HCPCS: 76700

== ENCOUNTER 2022-11-04 15:08 | Outpatient (AMB) | payer OTHER, SELFPAY ==
--- NOTE | 2022-11-04 15:21 | A.OFFVIS_ITS ---
Intake Vital Signs 11/04/22 15:23 Height 5 ft 7 in Weight 230 lb BMI 36.0 Intake Visit Reasons: OV- B/L knee pain LAST INJ 08/01/22 Intake Note: Santos is a 52 year old male who presents today for repeat injection for his bilateral knee pain, last inject 08/01/22. Patient reports his last lasted until recently. Allergies No Known Allergies [No Known Allergies*] Allergy (Verified 11/04/22 15:23) HPI OV- B/L knee pain LAST INJ 08/01/22 HPI Details 52-year-old male who presents in the office today for a follow up of bilateral knee pain. The patient had his last cortisone injection on 08/01/2022. He reports the injection gave him relief until recently. [facility] Medical History Hx of drug dependence Surgical History No history of previous surgery Family History Son Mental health disorder Mother Heart attack Father No problems noted. Other Substance use disorder Social History Housing: Apartment Alcohol intake: never Patient Tobacco Use Status: Current everyday Tobacco user Tobacco use type: Cigarette Cigarettes Per Day: 5 service: No Current occupational status: employed Current occupation: wood construction /rt hand Review of Systems Const All systems reviewed & are unremarkable except as noted in HPI and below Physical Exam Vital Signs: BMI result Body Mass Index 36.0 Const General: cooperative, healthy appearing and no acute distress Resp Effort & Inspection: normal respiratory effort and able to speak in complete sentences Cardio Rate: regular rate Peripheral pulses: Peripheral pulses 2+ throughout GI Palpation (GI): Soft to palpation Skin Lesions: no lesions Rashes: no rashes Extrem Other: Bilateral knees: Normal to inspection. No ecchymosis, erythema, or joint effusion. No tenderness to palpation to the medial or lateral joint lines. Full knee extension and flexion. Crepitus felt with ROM. Negative Mray Jo's. NVI. Office Procedures Joint Injection/Drain Joint Injection/Drain Primary Site: right knee Secondary Site: left knee Prep: site was prepped using aseptic technique, ethochloride spray was applied and injection warnings given Injected: 80 mg of, DepoMedrol, with 8 mL of (2% lido plain) and in the joint Approach Used: anterolateral Procedure: The patient tolerated the procedure well, but had some pain with the injection and there was some relief with the local anesthesia Coding 31155 - Large joint Procedure code (CPT) selection complete Results Reviewed Results Reviewed: 11/04/22 15:28 Lidocaine HCl 2 % MPF [Xylocaine 2 % MPF] 5 ml .ROUTE .STK-MED ONE methylPREDNISolone acetate [DEPO-MedroL] 80 mg .ROUTE .STK-MED ONE Assessment & Plan Assessment & Plan (1) Osteoarthritis of right knee: Code(s): M17.11 - Unilateral primary osteoarthritis, right knee (2) Osteoarthritis of left knee: Onset Date: ~06/25/22 Code(s): M17.12 - Unilateral primary osteoarthritis, left knee Plan Mr. Lio Edward is a 52-year-old male who presents in the office today for a follow up of bilateral knee pain. The patient had his last cortisone injection on 08/01/2022. The patient was offered a cortisone injection in the bilateral knees with 80 mg of DepoMedrol. The patient was explained the risk, benefits, and alternatives to receiving this injection. After receiving consent for the injection, the patient had the procedure done while in office today. The patient tolerated the procedure well with no complications. Follow up will be PRN, or sooner if needed. Patient Instructions: Scribed for Carlyn Braga PA-C by Irina Bagley medical attendant, on 11/04/2022 at 3:11 pm, EST. Coding Level of Care Code Est Pt Level 3 (26163) Diagnoses Osteoarthritis of right knee M17.11 Osteoarthritis of left knee M17.12 CPT Codes Coding - Large joint: 01501 - Large joint ([id number])
[2022-11-04 15:23] VITALS: BMI 36.0
== END 2022-11-04 15:52 | disposition home or self-care (01) ==
PROVIDERS: Visit Provider Physician Assistant
DX: M17.0 Bilateral primary osteoarthritis of knee (principal)
CPT/HCPCS: 20610; 99213

== ENCOUNTER → 2022-11-04 15:08 | Outpatient (BNVA) | payer OTHER, SELFPAY | PROVIDERS: Visit Provider Physician Assistant | DX: M17.0 Bilateral primary osteoarthritis of knee (principal) | CPT/HCPCS: 20610; 99212; J1040 ==

== ENCOUNTER 2022-11-13 16:31 | Outpatient (REF) | payer OTHER, SELFPAY ==
[2022-11-13 17:32] LABS: MANUAL DIFF FLAG NO
[2022-11-13 17:40] LABS: Basophils Absolute Auto 0.1 X10*3/uL (0.0-0.2); Basophils Percent Auto 0.7 % (0-2); Eosinophils Absolute Auto 0.1 X10*3/uL (0.0-0.4); Eosinophils Percent Auto 1.2 % (0-4); Hematocrit 37.6 % (42.0-52.0); Hemoglobin 12.7 g/dl (14.0-18.0); Imm Gran Abs Auto 0.02 X10*3/uL (0.00-0.03); Imm Gran Pct Auto 0.3 % (0.0-0.4); Lymphocytes Absolute Auto 1.9 X10*3/uL (1.2-4.9); Lymphocytes Percent Auto 25.4 % (20-40); Mean Corpuscular HGB Conc 33.8 g/dl (31.0-36.0); Mean Corpuscular Hemoglobin 29.9 pg (27.0-33.0); Mean Corpuscular Volume 88.5 fL (80.0-98.0); Mean Platelet Volume 11.6 fL (9.4-12.4); Monocytes Percent Auto 13.3 % (2-11); Neutrophils Absolute Auto 4.4 x10*3/uL (2.0-8.3); Neutrophils Percent Auto 59.1 % (45-73); Platelet Count 199 X10*3/uL (160-400); Red Blood Count 4.25 X10*6/uL (4.60-5.80); Red Cell Distribution Width 12.1 % (11.0-16.0); White Blood Count 7.5 X10*3/uL (4.8-10.8)
[2022-11-13 18:23] LABS: Erythrocyte Sedimentation Rate 44 MM/HR (0-15)
[2022-11-13 18:49] LABS: Microalbum/Creatinine Ratio Ur 6.6 ug/mg cr (<30)
== END 2022-11-13 16:32 | disposition home or self-care (01) ==
LOC: HO.HHCL 16:31
PROVIDERS: Visit Provider Student in an Organized Health Care Education/Training Program
DX: D64.9 Anemia, unspecified (principal); I10 Essential (primary) hypertension
CPT/HCPCS: 36415; 82043; 82570; 85025; 85652

== ENCOUNTER → 2023-01-07 12:53 | Outpatient (REF) | payer OTHER, SELFPAY ==
--- NOTE | 2023-01-07 12:56 | CA_ITS ---
Transthoracic Echocardiogram Patient (Last, First, Middle): Santos Martinez A Gender: Male Date of : 1970 Age: 52 Procedure Date: 01/07/2023 Procedure Type: Transthoracic Echocardiogram Location: OP Height: 170.18 cm Weight: 102.06 kg BSA: 2.13 m2 Heart Rate: 61 bpm BP: 154 / 62 mmHg Furniture Cleaner: SB Referring MD: Alize Don MD Symptoms: R01.1 MURMUR HTN I10.0 Study Quality: Fair but adequate ECG Rhythm: Sinus Conclusions: - The left ventricular systolic function is hyperdynamic. The visually estimated ejection fraction is >70%. - No obvious valvular pathology seen on this study. Findings Left Ventricle Normal left ventricular cavity size. The left ventricular systolic function is hyperdynamic. The visually estimated ejection fraction is >70%. There is no evidence of regional wall motion abnormalities. Diastolic function is normal for age. There is mild septal asymmetric hypertrophy. Right Ventricle Mildly increased right ventricular cavity size. There is normal right ventricular systolic function. Atria The left atrium is normal in size. The right atrium is mildly dilated. Aortic Valve There is a normal trileaflet aortic valve. There is no aortic valve stenosis. There is no aortic valve regurgitation. Mitral Valve The mitral valve appears normal. There is no mitral valve regurgitation. There is no mitral valve stenosis. Pulmonic Valve The pulmonic valve is likely normal. Tricuspid Valve Normal tricuspid valve structure. There is no tricuspid valve regurgitation. Tricuspid regurgitation envelope is inadequate for calculation of right ventricular systolic pressure. Great Vessels The asc aorta is normal in size. Venous The inferior vena cava is normal in size and collapses greater than 50% with inspiration. Pericardium/Pleural There is no evidence of pericardial effusion. Prior Study Comparison No prior study available for comparison. Recommendations, Care & Conclusions No obvious valvular pathology seen on this study. Measurements 2D Linear Measurements IVSd: 1.17 0.6-0.9/0.6-1.0 cm LVIDd: 6.00 3.9-5.3/4.2-5.9 cm LVIDd Index: 2.82 2.4-3.2/2.2-3.1 cm/m2 LVIDs: 3.29 2.0-3.6 cm LVPWd: 1.00 0.7-1.1 cm LA Diam: 4.40 2.7-3.8/3.0-4.0 cm LAIDs Index: 2.07 1.5-2.3 cm/m2 LV Mass: 342.51 67-162/88-224 g LV Mass Index: 160.80 43-95/49-115 g/m2 LVOT Diam: 2.10 3.0+(-)1.3 cm Mitral Valve MV Pk E: 0.79 MV PK A: 0.90 MV Decel Time: 258.00 E/A: 0.90 E'Lateral: 10.80 E'Medial: 10.30 E/E' Med: 7.70 E/E' Lat: 7.30 PHT: 75.00 MVA PHT: 2.93 Decel [place]: 3.07 Aortic Valve AoV Pk Hema: 2.21 AoV Mn Hema: 1.37 AoV VTI: 0.43 AoV Pk Grad: 20.00 Aov Mn Grad: 9.00 GWYN Cont.VTI: 2.69 LVOT LVOT Pk Hema: 1.61 LVOT Mn Hema: 1.10 LVOT VTI: 0.33 LVOT Pk Grad: 10.00 LVOT Mn Grad: 6.00 LVOT Diam: 2.10 LVOT Area: 3.46 Diastolic Function MV Pk E: 0.79 MV Pk A: 0.90 E/A: 0.90 E'Medial: 10.30 E/E' Med: 7.70 E' Laterial: 10.80 E/E' Lat: 7.30 Right Ventricle TAPSE (mm): 37.20 TVS' Hema: 18.60 Tricuspid Valve RA Press: 8.00 Great Vessels Aorta Sinus of Valsalva: 3.00 2.0-3.5 cm Ao Asc: 2.80 2.1-3.4 cm Pulmonary Veins Pulm Vein S/D 0.90 Pulmonary Valve PV Pk Hema: 1.77 PV Min Hema: 1.14 Peak PV Grad: 13.00 PV Mn Grad: 6.00 Updated in Other Vendor System with Status of Final Levon Grubbs MD electronically signed on 01/07/2023 4:27:16 PM with status of Final
== END ==
LOC: HO.CARD 12:53
PROVIDERS: PCP Student in an Organized Health Care Education/Training Program; Visit Provider Student in an Organized Health Care Education/Training Program
DX: R01.1 Cardiac murmur, unspecified (principal)
CPT/HCPCS: 93306

== ENCOUNTER → 2023-01-07 12:56 | Outpatient (BNV) | payer OTHER, SELFPAY | PROVIDERS: PCP Student in an Organized Health Care Education/Training Program; Visit Provider Internal Medicine | DX: I51.7 Cardiomegaly (principal) | CPT/HCPCS: 93306 ==

== ENCOUNTER 2023-02-06 13:05 | Outpatient (AMB) | payer OTHER, SELFPAY ==
--- NOTE | 2023-02-06 13:21 | A.OFFVIS_ITS ---
Intake Vital Signs 02/06/23 13:22 Height 5 ft 7 in Weight 230 lb BMI 36.0 Intake Visit Reasons: OV-B/L knee pain LAST INJ 11/04/22 Intake Note: Santos 52 yr old male presents today for bilateral knee O.A pain S/P injcetion from 11/04/22. States injection lasted 3 days and would like to discuss injection today. Allergies No Known Allergies [No Known Allergies*] Allergy (Verified 02/06/23 13:22) HPI OV-B/L knee pain LAST INJ 11/04/22 HPI Details 52-year-old male who presents in the off ice today for a follow up of bilateral knee pain. The patient had a cortisone injection on 11/04/2022. He states the injections lasted for 3 days. However, he is interested in discussing repeat injections today. [facility] Medical History Hx of drug dependence Surgical History No history of previous surgery Family History Son Mental health disorder Mother Heart attack Father No problems noted. Other Substance use disorder Social History Housing: Apartment Alcohol intake: never Patient Tobacco Use Status: Current everyday Tobacco user Tobacco use type: Cigarette Cigarettes Per Day: 5 service: No Current occupational status: employed Current occupation: wood construction /rt hand Review of Systems Const All systems reviewed & are unremarkable except as noted in HPI and below Physical Exam Vital Signs: BMI result Body Mass Index 36.0 Const General: cooperative, healthy appearing and no acute distress Resp Effort & Inspection: normal respiratory effort and able to speak in complete sentences Cardio Rate: regular rate Peripheral pulses: Peripheral pulses 2+ throughout GI Palpation (GI): Soft to palpation Skin Lesions: no lesions Rashes: no rashes Extrem Other: Bilateral knees: Normal to inspection. No ecchymosis, erythema, or joint effusion. No tenderness to palpation to the medial or lateral joint lines. Full knee extension and flexion. Crepitus felt with ROM. Negative Mary Jo's. NVI. Office Procedures Joint Injection/Drain Joint Injection/Drain Primary Site: right knee Secondary Site: left knee Injected: 80 mg of, DepoMedrol and with 8 mL of (2% plain lido ) Approach Used: anteromedial Procedure: The patient tolerated the procedure well, but had some pain with the injection and there was some relief with the local anesthesia Coding 77265 - Large joint Procedure code (CPT) selection complete Assessment & Plan Assessment & Plan (1) Osteoarthritis of right knee: Code(s): M17.11 - Unilateral primary osteoarthritis, right knee Qualifiers: Osteoarthritis type: unspecified Qualified Code(s): M17.11 - Unilateral primary osteoarthritis, right knee (2) Osteoarthritis of left knee: Onset Date: ~06/25/22 Code(s): M17.12 - Unilateral primary osteoarthritis, left knee Qualifiers: Osteoarthritis type: unspecified Qualified Code(s): M17.12 - Unilateral primary osteoarthritis, left knee Plan Mr. Lio Edward is a 52-year-old male who presents in the office today for a follow up of bilateral knee pain. The patient had a cortisone injection on 11/04/2022. He states the injections lasted for 3 days. However, he is interested in discussing repeat injections today. Dr. Cuellar was available to see the patient with me while in the office today and a collaborative treatment plan was made. We discussed conservative verses surgical treatment, such as total knee arthroplasty, as options for future treatments. At this time the patient would like to move forward with a cortisone injection. He is interested in moving forward with a total knee replacement in about 3-5 months. He will call the office when he would like to proceed with surgery or if he would like a repeat injection. The patient was offered a cortisone injection in the bilateral knees with 80 mg of DepoMedrol. The patient was explained the risk, benefits, and alternatives to receiving this injection. After receiving consent for the injection, the patient had the procedure done while in office today. The patient tolerated the procedure well with no complications. Follow up will be PRN, or sooner if needed. Patient Instructions: Scribed for Carlyn Braga PA-C by Irina Bagley director of medical education, on 02/06/2023 at 1:07 pm, EST. Coding Level of Care Code Est Pt Level 3 (82696) Diagnoses Osteoarthritis of right knee, unspecified osteoarthritis type M17.11 Osteoarthritis type: unspecified Osteoarthritis of left knee, unspecified osteoarthritis type M17.12 Osteoarthritis type: unspecified CPT Codes Coding - 86380 Large joint: 67317 - Large joint ([id number])
[2023-02-06 13:22] VITALS: BMI 36.0
== END 2023-02-06 13:51 | disposition home or self-care (01) ==
PROVIDERS: PCP Student in an Organized Health Care Education/Training Program; Visit Provider Physician Assistant
DX: M17.0 Bilateral primary osteoarthritis of knee (principal)
CPT/HCPCS: 20610; 99213

== ENCOUNTER → 2023-02-06 13:05 | Outpatient (BNVA) | payer OTHER, SELFPAY | PROVIDERS: PCP Student in an Organized Health Care Education/Training Program; Visit Provider Physician Assistant | DX: M17.0 Bilateral primary osteoarthritis of knee (principal) | CPT/HCPCS: 20610; 99212; J1040 ==

== ENCOUNTER 2023-04-21 07:41 | Outpatient (AMB) | payer OTHER, SELFPAY ==
[2023-04-21 08:29] VITALS: BP 140/86; PULSE 56; BMI 35.9
--- NOTE | 2023-04-21 08:29 | A.OFFVIS_ITS ---
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 Navi Don/Abnormal EKG Intake Note: NPV w/ EKG Extruding Department Supervisor Required: No Accompanied by: Self / Same As Patient Allergies No Known Allergies [No Known Allergies*] Allergy (Verified 04/21/23 08:32) Medication List - Last Reconciled 04/21/23 by Levon Grubbs MD methadone 110 mg PO DAILY valsartan 160 mg PO QAM HPI HPI Comments History of Present Illness Details Santos is here for consultation for concern regarding abnormal EKG/echocardiogram. Patient himself does not have any known cardiac issues. Denies any history of coronary artery disease or myocardial infarction or cardiomyopathy or in fact any cardiac symptoms. He states that he used to be exercising a lot and lifting very heavy weights, 100s of pounds till about 2 years ago. Overall, within limits of his activity he does not have any symptoms like chest pain or shortness of breath or palpitations or in fact any cardiac symptoms at all. Also, history of substance abuse. He is currently on methadone but he states the last time he used drugs was a few months back. [facility] Medical History Hx of drug dependence Surgical History No history of previous surgery Family History Son Mental health disorder Mother Heart attack Father No problems noted. Other Substance use disorder Social History Housing: Apartment Alcohol intake: never Patient Tobacco Use Status: Current everyday Tobacco user Tobacco use type: Cigarette Cigarettes Per Day: 5 service: No Current occupational status: employed Current occupation: wood construction /rt hand Review of Systems Const Denies chills, Denies daytime sleepiness, Denies fatigue, Denies fever(s), Denies frequent falls, Denies night sweats, Denies snoring, Denies weakness, Denies weight gain and Denies weight loss Eyes Denies loss of vision ENT Denies dizziness and Denies hearing loss Card Denies chest pain, Denies chest pain with activity, Denies syncope, Denies rapid heart rate, Denies edema, Denies claudication, Denies leg edema, Denies lightheadedness, Denies palpitations, Denies dyspnea, Denies dyspnea on exertion and Denies orthopnea Resp Denies cough, Denies excessive phlegm production, Denies dyspnea, Denies dyspnea on exertion, Denies snoring and Denies wheezing GI Denies abdominal pain, Denies hematochezia, Denies change in bowel habits, Denies change in stool character, Denies heartburn, Denies nausea and Denies vomiting Denies hematuria, Denies dysuria and Denies urinary frequency Musc Denies arthralgias, Denies muscle weakness, Denies numbness and Denies tingling Skin/Breast Denies nail changes and Denies rash Neuro Denies Abnormal speech present, Denies dizziness, Denies syncope, Denies frequent falls, Denies loss of vision, Denies memory loss, Denies numbness, Denies tingling and Denies weakness Psych Denies depression and Denies memory loss Endo Denies fatigue and Denies palpitations Aller/Immun Denies wheezing Physical Exam Vital Signs: Last Vital Signs Pulse 56 04/21/23 08:29 BP 140/86 H 04/21/23 08:29 BMI result Body Mass Index 35.9 Const General: comfortable and no acute distress Orientation/consciousness: patient oriented x3 HEENT Other: Unremarkable Head: Yes normal to inspection Neck Neck: Yes normal visual inspection Chest Chest palpation & inspection: normal inspection of the chest Resp Auscultation: clear to auscultation bilaterally Cardio Palpation: normal PMI Heart sounds: S1 normal heart sound present, S2 normal heart sound present, no gallops, no murmurs and no rubs GI Palpation (GI): Soft to palpation Back/Spine/Pelvis Other: unremarkable Skin General skin exam: no rashes or lesions noted Neuro General: patient oriented x3 Speech: No Abnormal speech present Extrem General: Yes normal to inspection Psych Mental Status: mental status grossly normal Office Procedures EKG Details: EKG with sinus bradycardia, 56/Min; minimal criteria for LVH; [place] [address]-[id number], Complete Assessment & Plan Assessment & Plan (1) Left ventricular hypertrophy: Code(s): I51.7 - Cardiomegaly (2) Hypertension: Code(s): I10 - Essential (primary) hypertension Qualifiers: Hypertension type: primary hypertension Qualified Code(s): I10 - Essential (primary) hypertension (3) Substance dependence: Code(s): F19.20 - Other psychoactive substance dependence, uncomplicated Plan EKG changes are probably from hypertension. In the echocardiogram, hyperdynamic LVEF; mild septal hypertrophy; no wall motion abnormalities. Overall, in the absence of symptoms, no specific management. Blood pressure management, abstinence from drugs. Coding Level of Care Code New Pt Level 3 (70676) Diagnoses Left ventricular hypertrophy I51.7 Primary hypertension I10 Hypertension type: primary hypertension Substance dependence F19.20 CPT Codes EKG - CPT: 69355-Ukmteahcbgcxyxgvo, Complete ([id number])
== END 2023-04-21 08:48 | disposition home or self-care (01) ==
PROVIDERS: PCP Student in an Organized Health Care Education/Training Program; Visit Provider Internal Medicine
DX: I51.7 Cardiomegaly (principal); I10 Essential (primary) hypertension; F19.20 Other psychoactive substance dependence, uncomplicated; R00.1 Bradycardia, unspecified
CPT/HCPCS: 93010; 99203

== ENCOUNTER → 2023-04-21 07:41 | Outpatient (BNVA) | payer OTHER, SELFPAY | PROVIDERS: PCP Student in an Organized Health Care Education/Training Program; Visit Provider Internal Medicine | DX: I51.7 Cardiomegaly (principal); I10 Essential (primary) hypertension; F19.20 Other psychoactive substance dependence, uncomplicated | CPT/HCPCS: 93005; 99202 ==

== ENCOUNTER 2023-05-13 15:05 | Outpatient (AMB) | payer OTHER, SELFPAY ==
--- NOTE | 2023-05-13 15:17 | A.OFFVIS_ITS ---
Intake Intake Visit Reasons: OV - B/L knee OA, last inj 02/06/23 Intake Note: Santos is a 53 year old male who presents today for a follow up for his bilateral knee OA, last injections 02/06/23. Patient reports he is doing okay, feeling a bit pain in his knees. He states that his last injections gave him 2-3 months of relief and he would like to repeat. Allergies No Known Allergies [No Known Allergies*] Allergy (Verified 05/13/23 15:18) HPI OV - B/L knee OA, last inj 02/06/23 HPI Details 53-year-old male who presents in the off ice today for a follow up of bilateral knee osteoarthritis. I last saw the patient in the office on 02/06/2023 when she was given cortisone injections in the bilateral knees. [facility] Medical History Hx of drug dependence Surgical History No history of previous surgery Family History Son Mental health disorder Mother Heart attack Father No problems noted. Other Substance use disorder Social History Housing: Apartment Alcohol intake: never Patient Tobacco Use Status: Current everyday Tobacco user Tobacco use type: Cigarette Cigarettes Per Day: 5 service: No Current occupational status: employed Current occupation: wood construction /rt hand Review of Systems Const All systems reviewed & are unremarkable except as noted in HPI and below Physical Exam Const General: cooperative, healthy appearing and no acute distress Resp Effort & Inspection: normal respiratory effort and able to speak in complete sentences Cardio Rate: regular rate Peripheral pulses: Peripheral pulses 2+ throughout GI Palpation (GI): Soft to palpation Skin Lesions: no lesions Rashes: no rashes Extrem Other: Bilateral knees: Normal to inspection. No ecchymosis, erythema, or joint effusion. No tenderness to palpation to the medial or lateral joint lines. Full knee extension and flexion. Crepitus felt with ROM. Negative Mary Jo's. NVI. Office Procedures Joint Injection/Drain Joint Injection/Drain Primary Site: right knee Secondary Site: left knee Prep: site was prepped using aseptic technique, ethochloride spray was applied and injection warnings given Injected: 80 mg of, DepoMedrol and with 8 mL of (2% plain lido ) Approach Used: anterolateral Procedure: The patient tolerated the procedure well, but had some pain with the injection and there was some relief with the local anesthesia Coding - Large joint Procedure code (CPT) selection complete Assessment & Plan Assessment & Plan (1) Osteoarthritis of right knee: Code(s): M17.11 - Unilateral primary osteoarthritis, right knee Qualifiers: Osteoarthritis type: unspecified Qualified Code(s): M17.11 - Unilateral primary osteoarthritis, right knee (2) Osteoarthritis of left knee: Onset Date: ~06/25/22 Code(s): M17.12 - Unilateral primary osteoarthritis, left knee Qualifiers: Osteoarthritis type: unspecified Qualified Code(s): M17.12 - Unilateral primary osteoarthritis, left knee Plan Mr. Lio Edward is a 53-year-old male who presents in the office today for a follow up of bilateral knee osteoarthritis. I last saw the patient in the office on 02/06/2023 when she was given cortisone injections in the bilateral knees. The patient was offered a cortisone injection in the bilateral knees with 80 mg of DepoMedrol. The patient was explained the risk, benefits, and alternatives to receiving this injection. After receiving consent for the injection, the patient had the procedure done while in office today. The patient tolerated the procedure well with no complications. Follow up will be PRN, or sooner if needed. Patient Instructions: Scribed by Irina Bagley medical anthropologist, for Carlyn Braga PA-C on 05/13/2023 at 3:06 pm, EST. Coding Level of Care Code Est Pt Level 4 (00313) Diagnoses Osteoarthritis of right knee, unspecified osteoarthritis type M17.11 Osteoarthritis type: unspecified Osteoarthritis of left knee, unspecified osteoarthritis type M17.12 Osteoarthritis type: unspecified CPT Codes Coding - Large joint: 83677 - Large joint ([id number])
== END 2023-05-13 15:18 | disposition home or self-care (01) ==
PROVIDERS: PCP Student in an Organized Health Care Education/Training Program; Visit Provider Physician Assistant
DX: M17.0 Bilateral primary osteoarthritis of knee (principal)
CPT/HCPCS: 20610; 99213

== ENCOUNTER → 2023-05-13 15:05 | Outpatient (BNVA) | payer OTHER, SELFPAY | PROVIDERS: PCP Student in an Organized Health Care Education/Training Program; Visit Provider Physician Assistant | DX: M17.0 Bilateral primary osteoarthritis of knee (principal) | CPT/HCPCS: 20610; 99212; J1040 ==

== ENCOUNTER 2023-08-12 07:57 | Outpatient (REF) | payer OTHER, SELFPAY | END 2023-08-12 07:58 | disposition home or self-care (01) | LOC: HO.HOSX 07:57 | PROVIDERS: Visit Provider Physician Assistant | DX: Z13.89 Encounter for screening for other disorder (principal) ==

== ENCOUNTER 2024-01-16 09:47 | Outpatient (REF) | payer OTHER, SELFPAY ==
[2024-01-16 11:49] LABS: Hematocrit 39.7 % (42.0-52.0); Hemoglobin 13.2 g/dl (14.0-18.0); Mean Corpuscular HGB Conc 33.2 g/dl (31.0-36.0); Mean Corpuscular Hemoglobin 29.3 pg (27.0-33.0); Mean Corpuscular Volume 88.2 fL (80.0-98.0); Mean Platelet Volume 12.3 fL (9.4-12.4); Platelet Count 171 X10*3/uL (160-400); White Blood Count 5.6 X10*3/uL (4.8-10.8)
[2024-01-16 12:37] LABS: Alanine Aminotransferase 27 U/L (0-40); Albumin Level 4.2 g/dL (3.5-5.0); Alkaline Phosphatase 93 U/L (39-117); Anion Gap 14 (12-20); Aspartate Amino Transferase 29 U/L (5-37); Bilirubin Total 0.5 mg/dL (0.0-1.0); Blood Urea Nitrogen 12 mg/dL (9-16); Calcium 9.4 mg/dL (8.4-10.2); Carbon Dioxide 25 mmol/L (22-29); Chloride 105 mmol/L (96-108); Estimated Glomerular Filt Rate > 60; Glucose Random 103 mg/dL (60-115); Potassium 4.1 mmol/L (3.3-5.1); Sodium 140 mmol/L (135-145); Total Protein 8.3 g/dL (6.5-8.0)
== END 2024-01-16 09:48 | disposition home or self-care (01) ==
LOC: HO.HHCL 09:47
PROVIDERS: Visit Provider Student in an Organized Health Care Education/Training Program
DX: I10 Essential (primary) hypertension (principal); D64.9 Anemia, unspecified
CPT/HCPCS: 36415; 80053; 85027

== ENCOUNTER 2024-11-15 06:27 | Outpatient (REF) | payer OTHER, SELFPAY ==
--- OUTSIDE RECORDS SUMMARY | 2024-11-15 06:32 | XMS_ITS | Patient Health Record ---
Author Organization [facility] Address [address] [place] [address] Care Team Providers Care Fpga Engineer Name Role Phone Charly Ng Primary Care Provider Unavailab Elliott Kimbrough Jr Unavailable Allergies No Known Allergies Reason For Referral No Information Medications Medication SIG (Take, Route, Frequency, Duration) Notes Start Date End Date Status MiraLax (colon prep) 17 GM/SCOOP mixed with Gatorade or Crystal Light Orally begin at 5:00 p.m. the day before the procedure for 1 day 02/22/2021 Active Methadone HCl 10 MG/ML 1 ml mixed with water or fruit juice as needed Orally Once a day actual dose determined by methadone clinic Active Immunizations Vaccine Route Administration Date Status Comme nts Influenza Unknown 02/22/2021 Refused Social History Tobacco Use: Social History Observation Description Date Details (start date - stop date) Current Smoker NA - NA Tobacco Use/Smoking Question Answer Notes Patient is a current smoker How often do you smoke cigarettes? every day How many cigarettes a day do you smoke? 6-10 Alcohol Screen Question Answer Notes Did you have a drink containing alcohol in the p ast year? No Points 0 Interpretation Negative Problems Problem Type SNOMED Code ICD Code Onset Dates Problem Status W/U Status Risk Notes Problem [id number] Colon cancer screening (Z12.11) Active confirmed Problem 259980132 Elevated LFTs (R79.89) Active confirmed Problem 043500196 Positive hepatitis C antibody test (R76.8) Active confirmed Plan Of Treatment Pending Test Test Name Order Date LIVER PROFILE 02/27/2021 HEPATITIS C VIRAL LOAD 02/27/2021 HEPATITIS C GENOTYPE 02/27/2021 HCV LIVER FIBROSIS, FIBRO TEST Future Test Test Name Order Date COLONOSCOPY 02/22/2021 Insurance Providers Payer Name Payer Address Payer Phone Subscriber Number Group Number Insured Name Patient Relationship to Insured Coverage Start Date Coverage End Date [facility] [address] [address] [place], [place] [id number] VICENTA VARGAS Self - patient is the insured Medical (General) History Medical History History ICD Code Opiate dependence/IV drug use Surgical History Surgery Date(Month/Year)
[2024-11-15 06:57] LABS: MANUAL DIFF FLAG NO
[2024-11-15 07:41] LABS: Hematocrit 37.5 % (42.0-52.0); Hemoglobin 12.5 g/dl (14.0-18.0); Imm Gran Abs Auto 0.02 X10*3/uL (0.00-0.03); Imm Gran Pct Auto 0.4 % (0.0-0.4); Lymphocytes Absolute Auto 1.3 X10*3/uL (1.2-4.9); Mean Corpuscular HGB Conc 33.3 g/dl (31.0-36.0); Mean Corpuscular Hemoglobin 29.1 pg (27.0-33.0); Mean Corpuscular Volume 87.2 fL (80.0-98.0); NRBC Abs Auto 0.000 X10*3/uL (0.0-0.012); NRBC Pct Auto 0.0 /100WBC (0.0-0.2); Platelet Count 166 X10*3/uL (160-400); Red Blood Count 4.30 X10*6/uL (4.60-5.80); White Blood Count 4.8 X10*3/uL (4.8-10.8)
[2024-11-15 07:43] LABS: Hemoglobin A1C 104.4878 umol/L; Total Hemoglobin (HGBA1C) 3231.3900 umol/L
[2024-11-15 08:08] LABS: Alanine Aminotransferase 40 U/L (0-40); Albumin Level 4.2 g/dL (3.5-5.0); Alkaline Phosphatase 100 U/L (39-117); Anion Gap 12 (12-20); Aspartate Amino Transferase 28 U/L (5-37); Blood Urea Nitrogen 12 mg/dL (9-16); Calcium 9.1 mg/dL (8.4-10.2); Carbon Dioxide 28 mmol/L (22-29); Chloride 104 mmol/L (96-108); Cholesterol 191 mg/dL (<200); Estimated Glomerular Filt Rate > 60; HDL Cholesterol 48 mg/dL (>40); Iron 56 mcg/dL (45-160); Percent Iron Saturation 21 % (15-50); Potassium 3.9 mmol/L (3.3-5.1); Sodium 140 mmol/L (135-145); Total Iron Binding Capacity 264 mcg/dL (228-428); Total Protein 8.0 g/dL (6.5-8.0); Triglycerides 89 mg/dL (<150); Unsaturated Iron Binding 208 ug/dL
[2024-11-15 08:20] LABS: Syphilis Screen Nonreactive (Nonreactive)
[2024-11-15 08:25] LABS: HBS Num1 4.76 mIU/mL (0-7.99); HBc Num1 0.05 S/CO (0.00-0.79); HBsAGNum1 0.38 S/CO (0.00-0.99); HIV Num 1 0.06 S/CO (0.00-0.99); Hepatitis B Surface Antigen Negative (Negative); ~HepC Num1 13.93 S/CO (0.00-0.79); ~Hepatitis B Surface Antibody NONREACTIVE (Nonreactive); ~Hepatitis C Antibody Reactive (Nonreactive)
[2024-11-15 08:29] LABS: Ferritin 196 ng/mL (20-250)
[2024-11-15 10:46] LABS: CT PCR Urine NOT DETECTED (Not Detect.); NG PCR Urine NOT DETECTED (Not Detect.)
[2024-11-17 17:00] LABS: HCV Log PCR <1.18 NOT DETECTED Log IU/mL (NOT DETECTED); HepC Viral Load <15 NOT DETECTED IU/mL (NOT DETECTED)
== END 2024-11-15 06:28 | disposition home or self-care (01) ==
LOC: HO.LAB 06:27
PROVIDERS: PCP Student in an Organized Health Care Education/Training Program; Visit Provider Student in an Organized Health Care Education/Training Program
DX: Z00.00 Encounter for general adult medical examination without abnormal findings (principal); Z11.59 Encounter for screening for other viral diseases; Z11.3 Encounter for screening for infections with a predominantly sexual mode of transmission; Z11.8 Encounter for screening for other infectious and parasitic diseases; Z11.4 Encounter for screening for human immunodeficiency virus [HIV]; I10 Essential (primary) hypertension
CPT/HCPCS: 36415; 80053; 80061; 82043; 82306; 82570; 82728; 83036; 83540; 84443; 85025; 86704; 86706; 86780; 86803; 87340; 87389; 87491; 87522; 87591